=== PATIENT | male | born 1985 | race Hispanic/Latino ===

== ENCOUNTER 2025-05-16 18:19 | Emergency (ER) | payer OTHER, SELFPAY ==
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
[2025-05-16 18:22] VITALS: BP 132/84; PULSE 85; RESP 18; TEMP 36.5; O2SAT 96
[2025-05-16] MEDS: HYDROcodone/acetaminophen (*CRX) 10-325 MG TABLET 1 TAB PO (18:32)
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
--- NOTE | 2025-05-27 14:01 | PC.NURSE ---
LATE ENTRY This note is being entered to document information to the patient's record. The following information was omitted on [05/16/25], by [Francesca Rios RN]. Thumb spica splint applied to left hand/lower left arm.
== END 2025-05-16 19:50 | disposition home or self-care (01) ==
PROVIDERS: Emergency Provider Student in an Organized Health Care Education/Training Program
DX: S67.22XA Crushing injury of left hand, initial encounter (principal); V03.90XA Pedestrian on foot injured in collision with car, pick-up truck or van, unspecified whether traffic or nontraffic accident, initial encounter
CPT/HCPCS: 29125; 73110; 73130; 99284; A9270